=== PATIENT | male | born 1985 | race Caucasian/White ===

== ENCOUNTER → 2023-08-03 06:31 | Day surgery (SDC) | payer OTHER, SELFPAY | LOC: GI 06:31 | PROVIDERS: ATTENDING PHYSICIAN Specialist | DX: D12.5 Benign neoplasm of sigmoid colon (principal); K55.20 Angiodysplasia of colon without hemorrhage; K64.8 Other hemorrhoids; K21.00 Gastro-esophageal reflux disease with esophagitis, without bleeding; K22.89 Other specified disease of esophagus; R12 Heartburn | CPT/HCPCS: 45385; 45382; 43239; 88305 ==

== ENCOUNTER 2024-08-12 15:40 | Emergency (ER) | payer BC, SELFPAY ==
[2024-08-12 15:48] VITALS: BP 168/100
--- NOTE | 2024-08-12 16:35 | ED.GENMED ---
History of Present Illness
General
Chief Complaint: Musculo-Skeletal Complaint
Source: patient
Exam Limitations: none
Time Seen by Provider: 08/12/24 16:05
Nursing documentation reviewed up to this point in time: agreed with
History of Present Illness
History of Present Illness:
The patient is a pleasant 39-year-old man who reports that he developed left-sided neck pain yesterday. Patient reports that it has gradually gotten worse to the extent that he is unable to turn his head to the left side. Patient denies chest pain
or shortness of breath. He denies weakness and numbness of the legs and arms. He denies specific injury.
Past History
Past History
ED Past Medical History: Asthma
ED Past Surgical History: Cholecystectomy
Social History
Tobacco: Non-smoker
Alcohol: Other
Drug: None
Personal:
Living: with family
Employment: Employed
Family History
Family History: Other
Review of Systems
Review of Systems
Allergies reviewed?: Yes
All Other Systems: ROS reviewed and negative except as documented in HPI and ROS
Constitutional: Reports no symptoms
EENT: Reports no symptoms
Respiratory: Reports no symptoms
Cardiac: Reports no symptoms
ABD/GI: Reports no symptoms
: Reports no symptoms
Musculoskeletal: Reports muscle pain, muscle stiffness and neck pain
Skin: Reports no symptoms
Neurological: Reports no symptoms
Endocrine: Reports no symptoms
Hematologic/Lymphatic: Reports no symptoms
Psychiatric: Reports no symptoms
Phy Exam
Physical Exam
Physical Exam:
Physical Exam
General: no apparent distress, not acutely ill. Patient appears well and comfortable but does not move his head to the left due to reproducible pain in his left neck area
Neck: supple. No soft tissue neck erythema or swelling. No stridor. No cervical lymphadenopathy. Patient has soft tissue tenderness of lateral cervical neck area extending from the base of left occipital scalp down
towards left shoulder. No cervical spine tenderness. No thoracic or lumbar spine tenderness
Heart: s1/s2 regular rate and rhythm, no murmur. equal radial pulses bilaterally.
Lungs: no acute respiratory distress. clear bilaterally
Abdomen: normal bowel sounds. not tender. no CVAT
Neuro: alert and oriented. no focal neurological deficits
Skin: no rash
Psychiatric: well kept. interactive and cooperative
Extremities: no edema. no calf tenderness. negative homans. good distal pulses
Course
Orders/Labs/Results
Orders:
Orders
08/12/24 16:32
Diazepam [Valium] 5 mg PO NOW STA
Ibuprofen [Motrin] 600 mg PO NOW STA
Vital Signs
Initial and Last Documented VS:
Initial Vital Signs
Temp Pulse Resp BP Pulse Ox
97.6 F 70 16 168/100 100
08/12/24 15:48 08/12/24 15:48 08/12/24 15:48 08/12/24 15:48 08/12/24 15:48
Last Documented Vital Signs
Temp Pulse Resp BP Pulse Ox
97.6 F 70 16 168/100 100
08/12/24 15:48 08/12/24 15:48 08/12/24 15:48 08/12/24 15:48 08/12/24 15:48
MDM/Problems Addressed
Differential Diagnosis Includes:
Cervical radiculopathy, torticollis, arthritis C-spine
MDM/Problems Addressed:
Patient presents with acute muscle pain of left neck area
Chronic conditions affecting care:
Patient has a history of asthma, however, he is breathing comfortably with no sign of asthma exacerbation
Acute Exacerbation and/or Progression of Chronic Illness:
Patient is likely acutely hypertensive due to pain.
Acute Exacerbation and/or Progression of Chronic Illness: HTN
*Pulse Oximetry
Patient hypoxic: no
*EKG
Interpreted by ED Provider?: NA
*Posting Machine Operator Interpretation
Rate: Posting Machine Operator- N/A
*Critical Care Note
Total Time (30-74mins, 75-104mins- exclusive of procedures): Not Applicable
Data Reviewed
Review of Other/Old Records Reveals: Testing (Colonoscopy shows a sigmoid polyp from 2023)
Source: patient and spouse
Update Note
Update Note:
5:30 PM patient states he feels better. He still has some stiffness along the left side of his neck. He has no bony tenderness to suggest doing an emergent x-ray. He is strong pulses, strength and sensation in his bilateral upper extremities to
there is no sign of neurovascular compromise.
ED Attending Note
-
Portions of this chart may have been created with voice recognition software.� Occasional wrong word or��sound alike� substitutions may have occurred due to the inherent limitations of voice recognition software.
Discharge Plan
Departure
Patient Disposition: Home (Routine Discharge)
Date of Disposition: 08/12/24
Time of Disposition: 17:45
Patient with high blood pressure during this ER visit?: Yes
Condition: Good
Covid-19: Not Applicable
Discharge Problem:
Muscle spasms of neck
Instructions: Neck pain - ED discharge instructions, BLOOD PRESSURE
Prescriptions:
New
diazepam [Valium] 5 mg tablet
5 mg PO TID PRN (Reason: muscle spasm) Qty: 10 0RF
No Action
Asthmanex
1 puff inhalation HS
Referrals:
UNKNOWN - PT DOES,NOT KNOW [Unknown Provider] -
Activity Restrictions/Additional Instructions:
Take Advil/Motrin 600 mg every 6-8 hours with food for pain. Additionally, if the pain is severe, please also take Valium every 8 hours as needed for severe pain. Please do not drive or drink alcohol while using the Valium
Interventions
Interventions:
*Risk Screen - Suicide Last Done: 08/12/24 15:48
*General Assessment Last Done: 08/12/24 15:48
*ED COVID-19 Vaccine History Last Done: 08/12/24 15:48
Discharge Date and Time
Print Language: MAURITIAN
[2024-08-12] MEDS: MOTRIN 600 MG PO (16:36)
[2024-08-12] MEDS: VALIUM 5 MG PO (16:37)
[2024-08-12 18:12] VITALS: BP 138/77
== END 2024-08-12 18:13 | disposition home or self-care (01) ==
LOC: EMR 15:40
PROVIDERS: EMERGENCY PHYSICIAN Emergency Medicine; FAMILY PHYSICIAN Student in an Organized Health Care Education/Training Program
DX: M62.838 Other muscle spasm (principal); J45.909 Unspecified asthma, uncomplicated; Z90.49 Acquired absence of other specified parts of digestive tract
CPT/HCPCS: 99282

== ENCOUNTER 2024-08-14 00:26 | Emergency (ER) | payer BC, SELFPAY ==
[2024-08-14 00:29] VITALS: BP 181/110
--- NOTE | 2024-08-14 01:40 | ED.GENMED ---
History of Present Illness
General
Chief Complaint: Musculo-Skeletal Complaint
Source: patient
Exam Limitations: none
Time Seen by Provider: 08/14/24 01:18
Nursing documentation reviewed up to this point in time: agreed with
History of Present Illness
History of Present Illness:
39-year-old male presenting to the emergency department today with concerns of left neck and shoulder pain ongoing over the past 3 days or so was seen here yesterday was given Valium and ibuprofen but has ongoing symptoms. Pain made worse with head
rotation to the left. Denies chest pain shortness of breath weakness. Denies any known injuries. Woke up with symptoms 3 days ago.
Past History
Past History
ED Past Medical History: Asthma
ED Past Surgical History: Cholecystectomy
Social History
Tobacco: Non-smoker
Alcohol: Other
Drug: None
Personal:
Living: with family
Employment: Employed
Family History
Family History: Other
Review of Systems
Review of Systems
Allergies reviewed?: Yes
All Other Systems: ROS reviewed and negative except as documented in HPI and ROS
Phy Exam
Physical Exam
Physical Exam:
GENERAL: Alert , in no apparent distress
EYE: pupils equal and reactive
NECK: Supple, no significant adenopathy.
ENT: o/p clr, mmm.
CARDIAC: Regular rate and rhythm .
LUNGS: Clear breath sounds bilaterally, no acute respiratory distress, no wheezes/rales/rhonchi
ABDOMEN: Soft, without focal tenderness, no r/g, no cvat
NEUROLOGICAL: Alert and oriented, no focal neuro deficits
SKIN: Warm and dry, skin intact.
MUSCULOSKELETAL: Patient unwilling to move his head to the left secondary to pain. Does have some muscle spasm to the left lateral superior trapezius region no redness or warmth no signs of infection , well perfused.
PSYCH: Normal and appropriate interaction.
Course
Orders/Labs/Results
Orders:
Orders
04/27/25 01:33
CT Neck W/o Iv Contrast Urgent
Comment:
Reason For Exam: left neck pain swelling
Ketorolac [Toradol] 15 mg IM NOW STA
Oxycodone [Roxicodone] 5 mg PO NOW STA
08/14/24 01:49
Tizanidine [Zanaflex] 4 mg PO NOW STA
Vital Signs
Initial and Last Documented VS:
Initial Vital Signs
Temp Pulse Resp BP Pulse Ox
98.4 F 82 26 181/110 98
08/14/24 00:29 08/14/24 00:29 08/14/24 00:29 08/14/24 00:29 08/14/24 00:29
Last Documented Vital Signs
Temp Pulse Resp BP Pulse Ox
98.4 F 82 26 181/110 98
08/14/24 00:29 08/14/24 00:29 08/14/24 00:29 08/14/24 00:29 08/14/24 00:29
MDM/Problems Addressed
MDM/Problems Addressed:
39-year-old male presenting to the emergency department today with concerns of left lateral neck discomfort discomfort made worse with head rotation to the left. Some mild inflammation to the left side of the neck but no redness or warmth no signs
of infection. No midline pain normal neurologic evaluation of upper extremities bilaterally. CT scan obtained of the neck without emergent findings. Patient with likely muscle strain. Patient was given symptomatic treatment with improvement.
Stable for outpatient management. Return precautions given.
*Critical Care Note
Total Time (30-74mins, 75-104mins- exclusive of procedures): Not Applicable
ED Attending Note
-
Portions of this chart may have been created with voice recognition software.� Occasional wrong word or��sound alike� substitutions may have occurred due to the inherent limitations of voice recognition software.
Discharge Plan
Departure
Patient Disposition: Home (Routine Discharge)
Date of Disposition: 08/14/24
Time of Disposition: 02:41
Patient with high blood pressure during this ER visit?: No
Condition: Good
Covid-19: Not Applicable
Discharge Problem:
Neck strain
Instructions: Neck pain
Prescriptions:
New
diclofenac sodium [Voltaren Arthritis Pain] 1 % gel
4 g topical QID Qty: 100 0RF
tizanidine 4 mg capsule
4 mg PO HS PRN (Reason: muscle spasticity) Qty: 7 0RF
No Action
Asthmanex
1 puff inhalation HS
diazepam [Valium] 5 mg tablet
5 mg PO TID PRN (Reason: muscle spasm) Qty: 10 0RF
Referrals:
Lauren Kauffman PA-C [Family Provider] -
Activity Restrictions/Additional Instructions:
You came to the emergency department today with concerns of ongoing neck discomfort. Here you had a reassuring assessment with normal CT scan. Please take the prescribed medications and lightly stretch the neck over the next few days as symptoms
will hopefully improve. Return for any worsening, new or concerning symptoms.
Interventions
Interventions:
*Risk Screen - Suicide Last Done: 08/14/24 00:29
*General Assessment Last Done: 08/14/24 01:54
*Neglect/Abuse Screening Last Done: 08/14/24 00:29
*ED- Fall Risk Assessment Last Done: 08/14/24 01:54
*ED COVID-19 Vaccine History Last Done: 08/14/24 01:54
ED-Musculoskeletal Assessment Last Done: 08/14/24 00:45
Discharge Date and Time
Print Language: BELARUSIAN
[2024-08-14] MEDS: ROXICODONE 5 MG PO (01:50)
[2024-08-14] MEDS: TORADOL 15 MG IM (01:52)
[2024-08-14] MEDS: ZANAFLEX 4 MG PO (01:57)
[2024-08-14 02:45] VITALS: BP 143/86
== END 2024-08-14 02:48 | disposition home or self-care (01) ==
LOC: EMR 00:26
PROVIDERS: EMERGENCY PHYSICIAN Student in an Organized Health Care Education/Training Program; FAMILY PHYSICIAN Student in an Organized Health Care Education/Training Program
DX: S16.1XXA Strain of muscle, fascia and tendon at neck level, initial encounter (principal); X58.XXXA Exposure to other specified factors, initial encounter
CPT/HCPCS: 99284; 96372; 70490

== ENCOUNTER 2025-04-08 05:22 | Observation (INO) | payer BC, SELFPAY ==
[2025-04-07 22:53] VITALS: BP 144/92
[2025-04-07 23:17] VITALS: BMI 26.6
--- NOTE | 2025-04-07 23:21 | ED.GENMED ---
History of Present Illness
General
Chief Complaint: Abdominal Symptoms
Source: patient and spouse
Time Seen by Provider: 04/07/25 23:20
History of Present Illness
History of Present Illness:
39-year-old male who was found his usual self until approximately 6 PM tonight when he had dinner and then started to note a lot of belching followed by repeated episodes of intractable nonbloody vomiting and diarrhea. Denies abdominal pain, chest
pain, dyspnea. He does have chills but denies fever. He denies back pain, extremity pain, headache, dizziness, or other complaints. He denies recent travel, sick contacts. His last use of antibiotics was approximately 1 month ago.
Past History
Past History
ED Past Medical History: Asthma and GERD
ED Past Surgical History: Cholecystectomy
Social History
Tobacco: Non-smoker
Alcohol: None
Drug: None
Personal:
Living: with family
Employment: Employed
Family History
Family History: Other
Phy Exam
Physical Exam
Physical Exam:
GENERAL: Alert , in no apparent distress
EYE: pupils equal and reactive
NECK: Supple, no significant adenopathy.
ENT: o/p clr, mm dry
CARDIAC: Regular rate and rhythm .
LUNGS: Clear breath sounds bilaterally, no acute respiratory distress, no wheezes/rales/rhonchi
ABDOMEN: Soft, without focal tenderness, no r/g, no cvat
NEUROLOGICAL: Alert and oriented, no focal neuro deficits
SKIN: Warm and mildly diaphoretic, skin intact.
MUSCULOSKELETAL: No edema, well perfused.
PSYCH: Normal and appropriate interaction.
Course
Orders/Labs/Results
Orders:
Orders
04/07/25 23:16
Electrocardiogram (*1) Urgent
Reason for Study: Fatigue / Weakness
04/07/25 23:17
EKG- Treatment ONCE
04/07/25 23:20
Ondansetron Injectable [Zofran] 4 mg IV NOW STA
US Abdomen Complete/Upper Urgent
Comment:
Reason For Exam: n/v/d
04/07/25 23:21
0.9% Sodium Chloride 1000 ml [Nss] 1,000 ml IV BOLUS
04/07/25 23:25
Complete Blood Count/With Diff Urgent
Comprehensive Metabolic Panel Urgent
Lipase Urgent
04/08/25 01:11
CT Abd/Pel (IV only)-DH only Urgent
Comment:
Reason For Exam: n/v/d
04/08/25 01:12
0.9% Sodium Chloride 1000 ml [Nss] 1,000 ml IV BOLUS
Abnormal Lab Results
04/07/25
23:25
WBC 16.4 H 10^3/uL
(4.8-10.8)
RDW 15.2 H %
(11.5-14.5)
Abs Immat Gran (auto) 0.1 H 10^3/uL
(0-0.05)
Absolute Neuts (auto) 14.9 H 10^3/uL
(1.4-6.5)
Absolute Lymphs (auto) 0.7 L 10^3/uL
(1.2-3.4)
Absolute Monos (auto) 0.7 H 10^3/uL
(0.1-0.6)
Neutrophils % 90.8 H %
(42.2-75.2)
Lymphocytes % 4.1 L %
(20.5-51.1)
Carbon Dioxide 17 L mmol/L
(22-30)
Glucose 145 H mg/dl
(70-99)
Total Bilirubin 1.6 H mg/dl
(0.2-1.3)
04/07/25 23:25
04/07/25 23:25
Vital Signs
Initial and Last Documented VS:
Initial Vital Signs
Temp Pulse Resp BP Pulse Ox
98.1 F 102 18 144/92 100
04/07/25 22:53 04/07/25 22:53 04/07/25 22:53 04/07/25 22:53 04/07/25 22:53
Last Documented Vital Signs
Temp Pulse Resp BP Pulse Ox
98.1 F 96 14 157/89 99
04/07/25 22:53 04/08/25 03:15 04/08/25 03:15 04/08/25 02:00 04/08/25 03:15
*Pulse Oximetry
SaO2: 100
Oxygen Mode of Delivery: Room air
Patient hypoxic: no
*Critical Care Note
Total Time (30-74mins, 75-104mins- exclusive of procedures): Not Applicable
Update Note
Update Note:
Patient presents to the Emergency Department with _nausea vomiting diarrhea
Number and Complexity of Problems Addressed at the Encounter
� Chronic conditions affecting care:
� Acute Exacerbation and/or Progression of Chronic Illness:
� Differential Diagnosis includes: But not limited to gastroenteritis, pancreatitis, bowel obstruction, retained stone, dehydration, etc. etc.
Amount and/or Complexity of Data to be Reviewed and Analyzed
� I performed an independent evaluation of and my interpretation is:
EKG: Read by me, normal sinus rhythm, no acute ischemia
CT: Vision report prominent gastric fluid distention fluid in nondistended small bowel fluid feces throughout the colon absent solid stool findings consistent with gastroenteritis may be a component of delayed gastric
emptying/gastroparesis given gastric distention no evidence of appendicitis diverticulitis bowel obstruction or free air mild bibasilar dependent lung ground glass atelectasis
Xrays:
Laboratory Studies: Leukocytosis noted, metabolic acidosis noted, nonspecific mild bilirubin elevation, lipase elevated
Other: Ultrasound vision read absent gallbladder compatible with reported cholecystectomy no appreciable biliary ductal dilatation the visualized CBD measures 6 mm in caliber suggestion of mild diffuse fatty infiltration of the
liver which is otherwise grossly unremarkable pancreas largely obscured by bowel gas normal spleen normal bilateral kidneys
� Review of other/old records reveals:
� Clinical information was obtained by an independent historian: who is bedside
� Prescriptions/Medications Considered but not given:
� Further testing considered but not performed:
Risk of Complications and/or Morbidity or Mortality of Patient Management
� Social determinants of health affecting care:
� Discussion with other providers (PCP, Hospitalists, Consultants, etc):
� Escalation of care including admission/observation vs risk of discharge considered: 1 1 3 AM patient still reports that he feels tired, no further vomiting, nausea resolved. Repeat abdominal exam soft and nontender. CT
pending, will hang more IV fluids and reassess.
3:41 AM Abd remains soft. No further vomiting, hwoever still feels weak/tired and unable to tolerate more than a few sips. Case d/w hospitalist for observation, continued monitoring, ivf, etc.
ED Attending Note
-
Portions of this chart may have been created with voice recognition software.� Occasional wrong word or��sound alike� substitutions may have occurred due to the inherent limitations of voice recognition software.
Discharge Plan
Departure
Patient Disposition: Admit
Date of Disposition: 04/08/25
Time of Disposition: 03:43
Admit to: Med/Surg
Presentation/result/management discussed w/ accepting MD/DO: Hospitalist
Condition: Fair
Discharge Problem:
Gastroenteritis
Prescriptions:
No Action
Asthmanex
1 puff inhalation HS
diazepam [Valium] 5 mg tablet
5 mg PO TID PRN (Reason: muscle spasm) Qty: 10 0RF
diclofenac sodium [Voltaren Arthritis Pain] 1 % gel
4 g topical QID Qty: 100 0RF
tizanidine 4 mg capsule
4 mg PO HS PRN (Reason: muscle spasticity) Qty: 7 0RF
Referrals:
UNKNOWN - PT DOES,NOT KNOW [Family Provider]
Interventions
Interventions:
*General Assessment Last Done: 04/07/25 22:57
*Neglect/Abuse Screening Last Done: 04/08/25 03:04
*ED COVID-19 Vaccine History Last Done: 04/07/25 23:17
*ED Influenza Vaccine History Last Done: 04/07/25 23:17
[facility] Fall Risk Assessment Tool Last Done: 04/07/25 23:18
*Risk Screen - Suicide (C-SSRS) Last Done: 04/07/25 22:53
OE-Elsleh-Vuphvsqbpi Assessment Last Done: 04/07/25 23:21
Discharge Date and Time
Print Language: GEORGIAN
[2025-04-07 23:23] VITALS: BP 134/78
[2025-04-07] MEDS: NSS 1000 IV (23:24)
[2025-04-07] MEDS: ZOFRAN 4 MG IV (23:29)
[2025-04-07 23:32] LABS: Hematocrit 42.3 % (39.0-52.0); Hemoglobin 14.7 g/dL (13.0-18.0); Mean Corp Hgb Conc. 34.8 g/dL (33.0-37.0); Mean Corpuscular Volume 80.6 fL (80.0-94.0); Nucleated Red Blood Cells % 0 % (-); Platelet Count 398 10^3/uL (130-400); Red Cell Dist. Width 15.2 % (11.5-14.5)
[2025-04-07 23:51] LABS: ALT (SGPT) 43 U/L (0-50); AST (SGOT) 36 U/L (17-59); Albumin 5.0 g/dl (3.5-5.0); Alkaline Phosphatase 101 U/L (38-126); Blood Urea Nitrogen 16 mg/dl (9-20); Calcium 9.7 mg/dl (8.4-10.2); Carbon Dioxide 17 mmol/L (22-30); Chloride 107 mmol/L (98-107); Estimated Creatinine Clearance > 125 ml/min; Glucose 145 mg/dl (70-99); Lipase 85 U/L (23-300); Potassium 4.3 mmol/L (3.5-5.1); Sodium 140 mmol/L (135-145); Total Protein 8.2 g/dl (6.3-8.2); eGFR > 60.00
[2025-04-08] VITALS (17 sets, daily range): BP systolic 115–160; BP diastolic 57–90; BMI 27.2
[2025-04-08] MEDS: NSS 1000 IV (01:16)
--- NOTE | 2025-04-08 04:32 | HPS.HSE ---
Family Physician
-
Family Physician: NOT KNOW UNKNOWN - PT DOES
Chief Complaint
-
Abdominal symptoms
History of Present Illness
This is a 39-year-old male with past medical history of GERD, asthma and status postcholecystectomy who presents to the emergency department with intractable nausea and vomiting as well as diarrhea.
Patient reports being in usual state of health up until dinnertime. He said he had dinner and then had while of Dr. Chan. Thereafter he started having belching that was intractable. He went to the bathroom to help evacuate himself when he had a
regular bowel movement and then developed profuse amount of diarrhea accompanied by intractable vomiting. He said he vomited up to 10 times prior to coming to the emergency department and he continued to vomit while in triage. While in triage she
had an episode of vomiting and then had a syncopal episode likely vasovagal. He said his last vomiting episode was around 11 PM. He also last had a watery loose bowel movement at around 3 AM.
Patient denies any antibiotic use. He has no recent travels. He is unaware of any sick contacts. He has no recent cold or flulike illness nor any known exposures.
In the emergency department he was afebrile, blood pressure was stable at 150/80 with a pulse of 96 and oxygen saturation of 99% on room air. ECG shows a normal sinus rhythm at rate of 80 with a QTc of 456. Is white count was 16.4 otherwise
hemoglobin was 14.7 and a platelet count of 398. Is electrolytes were stable, BUN/creatinine were normal, glucose was normal, LFTs were normal, lipase was normal.
An ultrasound which shows absence of gallbladder and otherwise unremarkable.
CT of the abdomen and pelvis has a final read pending but shows no evidence of obstruction on my review.
Medical History
Past Medical History
Past Medical History: Reports Asthma and GERD
Past Surgical History: Reports Cholecystectomy
Social History
Tobacco: Non-smoker
Alcohol: Occasional
Drug: None
Personal:
Living: With Family
Family History
Family History: Not pertinent
Allergies / Home Medications
Allergies reflects when Allergies were last updated in [employer].
Home Medications with original date entered in [employer]
Allergy/Medication List:
Allergies
Allergy/AdvReac Type Severity Reaction Status Date / Time
cefaclor (From [facility]) Allergy Unknown Unknown Verified 08/14/24 00:31
Home Medications
Omeprazole 20 mg p.o. tablet, 20 mg p.o. daily
Montelukast 10 mg p.o. tablet, 10 mg p.o. every afternoon
Review of Systems
-
Constitutional: Reports No Symptoms
EENT: Reports No Symptoms
Respiratory: Reports No Symptoms
Cardiac: Reports No Symptoms
Abdomen/GI: Reports Nausea, Vomiting and Diarrhea
: Reports No Symptoms
Musculoskeletal: Reports No Symptoms
Skin: Reports No Symptoms
Neurological: Reports No Symptoms
Endocrine: Reports No Symptoms
Hematologic/Lymphatic: Reports No Symptoms
Psych: Reports No Symptoms
Physical Exam
Vital Signs
Vital Signs
Temp Pulse Resp BP Pulse Ox
98.1 F 96 14 157/89 99
04/07/25 22:53 04/08/25 03:15 04/08/25 03:15 04/08/25 02:00 04/08/25 03:15
Physical Exam
General: Well Developed, Well Nourished and No Apparent Distress
HEENT: NormoCephalic, Moist mucous membranes and Atraumatic
Respiratory: Clear
Cardiac: S1/S2 and Regular Rhythm; No Murmur or Rub
GI: Soft, Non Tender, Non Distended and Normal Bowel Sounds; No Organomegaly
Rectal: Deferred by Provider
Genito-urinary: Deferred by me
Musculoskeletal: No Clubbing, No Cyanosis and No Edema
Skin: No Rash
Neuro: AO x 3 and Nonfocal/grossly intact
Laboratory Results
-
04/07/25 23:25
04/07/25 23:25
Laboratory Results
Total Bilirubin 1.6 mg/dl (0.2-1.3) H 04/07/25 23:25
AST 36 U/L (17-59) 04/07/25 23:25
ALT 43 U/L (0-50) 04/07/25 23:25
Alkaline Phosphatase 101 U/L (38-126) 04/07/25 23:25
Lipase 85 U/L (23-300) 04/07/25 23:25
Data Reviewed
-
CT Scan: Image Personally Visualized and interpreted
Ultrasound: Report Reviewed by me
Medical Tests (Nuc Med, Echo, EKG etc): Image Personally Visualized and interpreted
Lab Data: Labs Reviewed by me
Impression/Plan
-
IMPRESSION:
39-year-old with past medical history significant for GERD who presents to the emergency department with nausea vomiting diarrhea without fevers or chills and remains hemodynamically stable. Symptoms consistent with acute gastroenteritis. He did
have an episode of vasovagal presyncope in the emergency department. ECG shows a normal sinus rhythm at this time. He is hemodynamically stable and well-appearing. Abdominal exam is benign. CT scan as well as ultrasound shows no acute findings.
PLAN:
Acute gastroenteritis�intractable nausea vomiting secondary to acute gastroenteritis likely secondary to a viral illness.
� Admit to MedSurg observation
� Will continue with IV lactated Ringer's at 105 mL/h
� Clear liquid diet as tolerated
� Antiemetics and pain control
� Stool cultures
� Follow-up final read on CT scan
� Continue he is pantoprazole
DVT prophy�SCDs
CODE STATUS�full code
[2025-04-08] MEDS: LR 1000 IV ×2 (05:40→15:20)
[2025-04-08] MEDS: ZOFRAN 4 MG IV ×3 (05:40→16:18)
--- NOTE | 2025-04-08 08:01 | EDRN ---
medication reconciliation performed with the pt, the pt is aware of his daily medications
[2025-04-08] MEDS: TORADOL 10 MG IV ×2 (09:18→16:18)
[2025-04-08] MEDS: PROTONIX 20 MG PO (09:18)
--- NOTE | 2025-04-08 11:05 | CM ---
Chart reviewed and OBS form reviewed with patient
Spoke with patient at ED bedside
Lives with in [address] Independent
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
no DME
PCP [facility] in [place]
no hx of VN nor SNF
DCP is to return home no needs
can drive him home
Cm will continue to follow up for any dcp needs
--- NOTE | 2025-04-08 13:16 | W.PN.HOSP.TC ---
Today's Communication/Plan
-
IV fluid
Assessment / Plan
Assessment / Plan
Physical exam:
General: Well Developed, Well Nourished and No Apparent Distress
HEENT: Normocephalic, Atraumatic and Moist Mucous Membranes
Respiratory: Clear to Auscultation; Negative Wheezes, Rales or Rhonchi
Cardiac: Regular Rhythm and S1/S2
GI: Soft, Nontender and Nondistended
Musculoskeletal: No Clubbing, No Cyanosis and No Edema
Neuro: Awake, Alert and Oriented, no neurological deficit
Psych: Calm
A/P:
Acute gastroenteritis due to norovirus:
Continue IV fluid
Keep on clear diet and advance as tolerated
Antiemetics
Supportive care
Anticipated Discharge: Within 24 hours
Subjective/Interval History
-
Date of Service: April 08, 2025
Patient having less diarrhea and less nausea. No vomiting today. Abdominal discomfort improving. Afebrile
Objective Data
-
Vital Signs:
Vital Signs
Temp Pulse Resp BP Pulse Ox
98.4 F 97 15 148/87 98
04/08/25 07:53 04/08/25 07:53 04/08/25 07:53 04/08/25 07:53 04/08/25 07:53
--- NOTE | 2025-04-08 15:19 | EDRN ---
this RN called the receiving unit and notified them that paper report was going to be tubed up
[2025-04-08] MEDS: SINGULAIR 10 MG PO (18:33)
[2025-04-08] MEDS: TUMS CHEWABLE TABLET 200 MG PO (19:12)
[2025-04-08] MEDS: TYLENOL 650 MG PO (23:45)
--- NOTE | 2025-04-09 02:00 | PTCARENOTE ---
PRN Tylenol give at 2345 for temp of 100.9. Pt denied any symptoms except feeling a bit warm. Follow up temp 98.0 at 0200.
[2025-04-09] MEDS: LR 1000 IV ×2 (04:50→13:42)
[2025-04-09 07:37] VITALS: BP 116/71
[2025-04-09] MEDS: PROTONIX 20 MG PO (07:39)
[2025-04-09 07:53] LABS: Hematocrit 34.4 % (39.0-52.0); Hemoglobin 11.5 g/dL (13.0-18.0); Mean Corp Hgb Conc. 33.4 g/dL (33.0-37.0); Mean Corpuscular Volume 83.9 fL (80.0-94.0); Platelet Count 231 10^3/uL (130-400); Red Cell Dist. Width 15.8 % (11.5-14.5)
[2025-04-09 08:20] LABS: Blood Urea Nitrogen 12 mg/dl (9-20); Calcium 8.2 mg/dl (8.4-10.2); Carbon Dioxide 24 mmol/L (22-30); Chloride 107 mmol/L (98-107); Estimated Creatinine Clearance 103 ml/min; Glucose 98 mg/dl (70-99); Potassium 3.7 mmol/L (3.5-5.1); Sodium 138 mmol/L (135-145); eGFR > 60.00
--- NOTE | 2025-04-09 08:52 | W.PN.HOSP.TC ---
Today's Communication/Plan
-
Discharge planning today
Assessment / Plan
Assessment / Plan
Physical exam:
General: Well Developed, Well Nourished and No Apparent Distress
HEENT: Normocephalic, Atraumatic and Moist Mucous Membranes
Respiratory: Clear to Auscultation; Negative Wheezes, Rales or Rhonchi
Cardiac: Regular Rhythm and S1/S2
GI: Soft, Nontender and Nondistended
Musculoskeletal: No Clubbing, No Cyanosis and No Edema
Neuro: Awake, Alert and Oriented, no neurological deficit
Psych: Calm
A/P:
Acute gastroenteritis due to norovirus:
Continue IV fluid but can switch to oral intake upon discharge
Advance to low-fat diet today
Antiemetics
Supportive care
Patient is medically clear for discharge. He does feel generalized weakness and concern of going home but I reassured him that he is medically cleared to go home since no role for inpatient care at the moment. I asked PT to see him. Discharge
order in.
Anticipated Discharge: Today
Subjective/Interval History
-
Date of Service: April 09, 2025
Patient feels better overall but does have significant generalized weakness. There is nausea and diarrhea. No vomiting. Poor appetite. Afebrile
Objective Data
-
Labs:
Laboratory Results
04/09/25
06:47
WBC 7.6
Hgb 11.5 L D
Hct 34.4 L
Plt Count 231 D
Sodium 138
Potassium 3.7
Chloride 107
Carbon Dioxide 24
BUN 12
Creatinine 1.1
Glucose 98
Calcium 8.2 L D
Vital Signs:
Vital Signs
Temp Pulse Resp BP Pulse Ox
98.2 F 94 18 116/71 96
04/09/25 07:37 04/09/25 07:37 04/09/25 07:37 04/09/25 07:37 04/09/25 08:00
I&O
04/08/25 04/09/25 04/10/25
06:59 06:59 06:59
Intake Total 1800 / 1800
Balance 1800 / 1800
--- NOTE | 2025-04-09 08:52 | W.DCSUMMARY ---
Addendum entered and electronically signed by Siva Perrin MD 04/10/25 12:03:
Date of discharge : 04/10/2025
Pt was feeling tired and weak yesterday with a diarrheal illness. Feeling better today. Stable for discharge today.
Original Note:
Discharge Summary
Discharge Data
Date of Admission: 04/08/25
Date of Discharge: 04/09/25
-
Pending Results: No
Hospital Course
Patient 39 years old male with history of asthma and GERD came into the hospital nausea vomiting and diarrhea. Patient was given IV fluids. His diet was advanced as tolerated and he was advanced to low-fat diet. CT scan of the abdomen shows
evidence of gastroenteritis. His stool cultures were positive for norovirus which is the culprit of his gastroenteritis. Patient did improve from his diarrhea and nausea and vomiting. He remains with generalized weakness. PT ordered for
evaluation. I reassured him that he will still have some lingering symptoms on and off for a few days but there is no role for inpatient care at the moment so he has been medically discharge. He is hesitant on going home so we will see how he does
over the rest of the day.
Discharge Plan
-
Patient Disposition: Home (Routine Discharge)
Discharge Diagnosis/Procedures: Acute viral gastroenteritis due to norovirus.
Diet: Low Fat
Additional Diets: Low residue and nondairy for 1 week and then regular diet.
Activity: As tolerated
Blood Work: Please PCP to order CBC, BMP within 1 to 2 weeks
Referrals:
Primary care provider [Other] - in less than 1 week
UNKNOWN - PT DOES,NOT KNOW [Family Provider]
Prescriptions:
Continued
omeprazole 40 mg Capsule,Delayed Release(Dr/Ec)
40 mg PO DAILY
montelukast [Singulair] 10 mg Tablet
10 mg PO DAILY
albuterol sulfate 90 mcg/actuation Hfa Aerosol Inhaler
1 inh INHALATION ONCE PRN (Reason: SOB)
Discharge Orders:
Discharge Patient (As Directed); Ordered 04/09/25
Ordered By: Celio Stout
Discharge Date and Time
Print Language: ALGERIAN
[2025-04-09] MEDS: LR IV ×3 (10:04→23:32)
--- NOTE | 2025-04-09 11:33 | CM ---
Chart reviewed patient is for discharge.
Plan; Discharge today
[2025-04-09] MEDS: IMODIUM 2 MG PO (14:09)
[2025-04-09 14:59] VITALS: BP 129/75; PULSE 76; O2SAT 100
[2025-04-09 15:40] VITALS: BP 130/87
--- NOTE | 2025-04-09 17:04 | PTCARENOTE ---
Pt instructed on discharge instructions. Pt told this RN he feels too unwell to leave, afraid he will fall. Dr Stout notified. PT worked w/ pt who safely ambulated in the room w/ generalized weakness, no dizziness, VSS. Zofran given for mild nausea,
no vomiting. Imodium given for diarrhea. Instructed pt that discharge order was in and would not be discontinued. Dr Stout notified pt feels he is too unwell to leave at this time.
[2025-04-09] MEDS: SINGULAIR 10 MG PO (17:31)
[2025-04-09] MEDS: TYLENOL 650 MG PO (21:12)
--- NOTE | 2025-04-09 21:30 | PTCARENOTE ---
Patient reports decreased nausea and no BMs since receiving Imodium amd Zofran earlier this afternoon. He said that he didn't tolerate advanced diet well today. Offered/provided roland mukesh and saltine crackers which were tolerated well upon follow
up.
[2025-04-09 23:03] VITALS: BP 130/68
[2025-04-10 07:00] VITALS: BP 151/87
[2025-04-10] MEDS: PROTONIX 20 MG PO (07:44)
[2025-04-10 11:00] VITALS: BP 161/85
--- NOTE | 2025-04-10 12:00 | W.PN.HOSP.TC ---
Today's Communication/Plan
-
dc
Assessment / Plan
Assessment / Plan
A/P:
Acute gastroenteritis due to norovirus:
Resolved diarrhea and improving clinically
Feeling better to go home.
Advised about avoiding milk products and also about possibility of irritable bowel symptoms and the following week or 2. Advised good hand hygiene at home.
Medically stable for discharge home today.
Anticipated Discharge: Today
Subjective/Interval History
-
Date of Service: April 10, 2025
Patient with much improved diarrheal symptoms. Not much appetite but no nausea vomiting. No fever chills.
Keen to go home.
Objective Data
-
Vital Signs:
Vital Signs
Temp Pulse Resp BP Pulse Ox
97.8 F 73 18 151/87 99
04/10/25 07:00 04/10/25 07:00 04/10/25 07:00 04/10/25 07:00 04/10/25 07:00
I&O
04/09/25 04/10/25 04/11/25
06:59 06:59 06:59
Intake Total 1800 / 1800 3000 / 3000
Balance 1800 / 1800 3000 / 3000
Physical Exam
-
General: No Apparent Distress
HEENT: Moist Mucous Membranes
Respiratory: Non Labored Respirations; Negative Accessory Resp Muscle Use
Cardiac: Regular Rhythm and S1/S2; Negative Tachycardic
GI: Soft and Nontender
== END 2025-04-10 12:50 | disposition home or self-care (01) ==
LOC: 4 WEST ACU 05:22
PROVIDERS: Emergency Medicine; Hospitalist; ADMITTING PHYSICIAN Internal Medicine; ATTENDING PHYSICIAN Internal Medicine; EMERGENCY PHYSICIAN Emergency Medicine
DX: A08.11 Acute gastroenteropathy due to Norwalk agent (principal); J45.909 Unspecified asthma, uncomplicated; K21.9 Gastro-esophageal reflux disease without esophagitis; Z79.899 Other long term (current) drug therapy; Z90.49 Acquired absence of other specified parts of digestive tract
CPT/HCPCS: 74177; 76700; 80048; 80053; 83690; 85025; 85027; 87045; 87046; 87427; 87798; 93005; 96361; 96374; 97162; 99285; G0378; Q9967